=== PATIENT | female | born 1965 | race Caucasian/White ===

== ENCOUNTER 2018-03-20 19:10 | Emergency (ER) | payer MEDICARE, MEDICAID, SELFPAY ==
[2018-03-20 19:10] VITALS: BP 123/76; PULSE 70; RESP 16; TEMP 36.9; O2SAT 99; BMI 29.0
[2018-03-20] MEDS: Diphth,Pertuss(Acell),Tet Vac 0.5 ML Vial IM (20:03)
--- NOTE | 2018-03-20 20:04 | ED.VISSUMM ---
- ER Visit Summary Date of Service: 03/20/18 Chief Complaint: Foot laceration History of Present Illness: The patient is a 52 F who states that she dropped a michelle jar full of margaritas on her left foot causing laceration. Unknown last tetanus. She denies any other injuries. Physical Examination: There is a rolon over the dorsum of the left foot near the MTP joint. Normal tendon function. Vascular intact distally. No active bleeding. Emergency Department Course and Treatment: Tetanus was updated and the wound was locally anesthetized using 1% lidocaine. It was washed with Shur-Clens explored and irrigated. It was closed using a total of #4 4-0 plain interrupted Ethilon sutures. Wound care discussed with patient follow-up 10-14 days for suture removal Impression: 1. 2 cm left foot laceration with repair 2. Tetanus update This note was generated with [employer] dictation software. It may contain incorrect words, spelling, and punctuation that were not noted in review of the chart prior to signing ED Disposition - Plan for ED Patient: Disposition: Home or Assisted Living Chief Complaint: Laceration Instructions: ED Laceration Foot Referrals: Jesse Salinas DO [Primary Care Provider] - 10-14 Days suture removal
[2018-03-20 20:29] VITALS: RESP 18
== END 2018-03-20 20:30 | disposition home or self-care (01) ==
LOC: ED 20:09
PROVIDERS: Emergency Provider Emergency Medicine; Family Provider Student in an Organized Health Care Education/Training Program; PCP Student in an Organized Health Care Education/Training Program
DX: S91.312A Laceration without foreign body, left foot, initial encounter (principal); W20.8XXA Other cause of strike by thrown, projected or falling object, initial encounter; Y93.9 Activity, unspecified; Y92.9 Unspecified place or not applicable; Y99.9 Unspecified external cause status; Z23 Encounter for immunization; Z79.899 Other long term (current) drug therapy
CPT/HCPCS: 12001; 90471; 90715; 99283

== ENCOUNTER 2018-12-02 19:33 | Emergency (ER) | payer MEDICARE, MEDICAID, SELFPAY ==
[2018-12-02] VITALS (7 sets, daily range): BP systolic 109–142; BP diastolic 72–88; PULSE 64–77; RESP 14–16; TEMP 36.6; O2SAT 94–98; BMI 32.0
--- NOTE | 2018-12-02 19:47 | RAD_ITS ---
STUDY: X-RAY CHEST REASON FOR EXAM: Female, 53 years old. Chest pain TECHNIQUE: Frontal view of the chest COMPARISON: None. FINDINGS: There are calcified granulomata noted in the left lower lobe. The lungs are otherwise clear. There are no pleural effusions. There is no pneumothorax. The heart is normal in size. The visualized osseous structures are within normal limits. RAD/Chest 1 View (Portable) IMPRESSION: No acute thoracic pathology. Electronically Signed: Valentino Mason, at 20:08 EST Tel , Service support ,
--- NOTE | 2018-12-02 19:47 | EKG12_ITS ---
Test Reason : CP Blood Pressure : / mmHG Vent. Rate : 072 BPM Atrial Rate : 072 BPM P-R Int : 182 ms QRS Dur : 108 ms QT Int : 400 ms P-R-T Axes : 075 019 054 degrees QTc Int : 438 ms Sinus rhythm with occasional Premature ventricular complexes Otherwise normal ECG Confirmed by CARLOS CALIX, KAYLYNN ([id number]), photograph editor DONNA YORK ([id number]) on 12/04/2018 4:36:03 PM Referred By: CARLOS Confirmed By:KAYLYNN GONZALEZ MD
--- NOTE | 2018-12-02 19:53 | ED.DCSUM_ITS ---
- ER Visit Summary Date of Service: 12/02/18 Chief Complaint: Chest pain History of Present Illness: The patient is a 53 F who states that upon waking this morning she had a chest pressure. She states that it has been constant all day. She states it feels similar to when she had tox obvious cardiomyopathy last March. She states she had a heart catheterization at [facility]. She denies any nausea vomiting shortness of breath arm or jaw pain symptoms. She has no personal history of hypertension diabetes or hyperlipidemia. She is a non-smoker. She states her father had heart disease and at the age of 49. But she also states it may have been a stroke. Physical Examination: Afebrile vital signs are stable Gen: Well-nourished well-developed Head: Normocephalic atraumatic Eyes: Perrl EOMI ENT: TMs clear no rhinorrhea moist mucous membranes Neck: Supple no lymphadenopathy no JVD nontender CVS: Regular rate rhythm no murmurs normal S1-S2 Respiratory: No distress clear to auscultation bilaterally chest nontender Abdomen: Soft nontender nondistended normal bowel sounds no masses Back: Nontender Extremity: Nontender no edema Skin: Normal color no rash Neuro: alert orientated ?3 CN II-XII intact normal strength sensation reflexes gait cerebellar Psych: Normal affect normal mood Test Results: EKG showed a normal sinus rhythm rate of 72. CBC BMP and troponin were negative. D-dimer in the normal range Emergency Department Course and Treatment: Patient received nitroglycerin which did not fully relieve her symptoms. She received a GI cocktail. She states that after the nitro and the GI cocktail she is feeling significantly better. LILLY score of 0. Greater than 6-hour troponin is negative patient to follow-up with primary care. Impression: Chest pain This note was generated with [employer] dictation software. It may contain incorrect words, spelling, and punctuation that were not noted in review of the chart prior to signing ED Disposition - Plan for ED Patient: Disposition: Home or Assisted Living Instructions: ED Chest Pain Atypical Unkn Cause Referrals: Jesse Salinas DO [Primary Care Provider] - 1 Week
[2018-12-02 20:00] LABS: Absolute Lymphocyte Count 3.04 X10^3/ul (0.83-4.51); Absolute Neutrophil Count 1.3 X10^3/uL (2.0-7.7); Basophil# 0.03 X10^3/uL; Basophil% 0.6 % (0-1); Differential Indicated SCAN CRITERIA MET; Eosinophil# 0.09 X10^3/uL; Eosinophils% 1.9 % (0-5); Hematocrit 41.3 % (37-47); Hemoglobin 12.7 g/dl (12.0-15.0); Lymphocyte # 3.04 X10^3/ul (4.0); Lymphocyte % 65.5 % (19-41); Mean Corp Hgb Conc 30.8 g/gl (32-36); Mean Corpuscular Hgb 26.3 pg (27.0-32.0); Mean Corpuscular Volume 85.7 fL (81-99); Mean Platelet Vol. 9.9 fl (6.2-12.0); Monocyte# 0.23 X10^3/uL; Neutrophil # 1.25 X10^3/uL (2.7-7.7); POSITIVE COUNT NO; POSITIVE DIFFERENTIAL NO; POSITIVE MORPHOLOGY YES; Platelet Count 243 K/mm3 (150-450); RBC Distribution Width CV 21.6 % (11.6-14.6); RBC Distribution Width SD 68.2 fl (35.1-43.9); Red Blood Count 4.82 M/mm3 (4.2-5.4); White Blood Count 4.6 K/mm3 (4.4-11.0)
[2018-12-02 20:09] LABS: Anion Gap 7 (5-15); BUN 10 mg/dL (7-18); BUN/Creat Ratio 14.9 RATIO (10-20); Calcium,Total 8.4 mg/dL (8.5-10.1); Chloride 107 mmol/L (98-107); Creatinine, Serum 0.67 mg/dL (0.55-1.02); EST Glomerular Filtration Rate 98 mL/min (>60); Est Glom Filt Rate - Afr Amer 118 mL/min (>60); Glucose 91 mg/dL (74-106); Potassium 3.8 mmol/L (3.5-5.1); Sodium Level 144 mmol/L (136-145)
[2018-12-02 20:20] LABS: Anisocytosis 1+; Crenated RBC 1+; Differential Comment SCANNED
[2018-12-02] MEDS: Mag Hydrox/Al Hydrox/Simeth 30 ML UDC PO (20:55)
[2018-12-02 21:14] LABS: D-Dimer Quantitative (DVT/PE) 0.47 FEU/ug/m (0.27-0.49)
== END 2018-12-02 21:41 | disposition home or self-care (01) ==
PROVIDERS: Emergency Provider Emergency Medicine; Family Provider Student in an Organized Health Care Education/Training Program; PCP Student in an Organized Health Care Education/Training Program
DX: R07.9 Chest pain, unspecified (principal); I49.3 Ventricular premature depolarization; K21.9 Gastro-esophageal reflux disease without esophagitis; Z79.899 Other long term (current) drug therapy; Z98.84 Bariatric surgery status
CPT/HCPCS: 71045; 80048; 84484; 85025; 85379; 93005; 99285; A4216

== ENCOUNTER 2019-01-24 15:23 | Emergency (ER) | payer MEDICARE, MEDICAID, SELFPAY ==
[2018-12-02 19:33] VITALS: BMI 32.0
[2019-01-24 15:24] VITALS: BP 121/70; PULSE 95; RESP 16; TEMP 37.3; O2SAT 96; BMI 29.5
--- NOTE | 2019-01-24 15:46 | CT_ITS ---
We are attempting to reach Jimbo Whitt MD to discuss findings. An addendum with communication details will be sent when the communication is complete. STUDY: CT ABDOMEN AND PELVIS WITHOUT CONTRAST REASON FOR EXAM: Female, 53 years old. Right lower quadrant pain. History of cholecystectomy. History of deep ulcers. RADIATION DOSAGE (If Supplied By Facility): CTDIvol = ( 14.67 ) mGy, DLP = ( 1020.80 ) mGycm TECHNIQUE: Transaxial images were obtained from the dome of the diaphragm to the symphysis pubis without oral contrast, and without intravenous contrast. Sagittal and coronal images were reconstructed. Individualized dose optimization techniques were used for this CT. COMPARISON: None. FINDINGS: There is increased AP diameter of the chest. There is a 6 mm, as well as a 1.4 cm calcified anatomic in the lingula. The lungs otherwise clear. The visualized portions of the heart are within normal limits. There is scattered calcified granulomata within the liver which is otherwise uniform in density. There are surgical clips in the gallbladder fossa consistent with a prior cholecystectomy. There is mild splenomegaly. Calcified granulomata are seen within the spleen. Normal pancreas. Normal bilateral adrenal glands. There is a 5 mm cyst in the lower pole of an otherwise normal right kidney. Normal left kidney. There is evidence of gastric bypass surgery. Loops of mildly distended small bowel loop in the left upper quadrant. The remainder of the small bowel appears nondistended.. And feces is seen throughout the redundant colon without mass or obstruction. There are intraluminal collections of ascites within the mid to lower abdomen. There is a fluid collection along the right anterior abdomen adjacent to the cecum measuring 12.4 x 5.5 x 2.2 cm in size. Normal abdominal aorta. There is an IVC filter in place. Normal retroperitoneum. The urinary bladder is poorly distended. Status post hysterectomy. There is no free air within the peritoneal cavity. Normal abdominal wall. There are diffuse degenerative changes of the visualized lumbar spine. There is a right total hip arthroplasty. CT/Abdomen/Pelvis W IV Cont ONLY IMPRESSION: 1. Nonvisualization of the pancreas. There is a contained fluid collection in the right lower quadrant. The possibility of appendiceal abscess cannot be ruled out. 2. Minimal free fluid in the interloop collections in the left lower quadrant. 3. Hepatosplenomegaly without mass. 4. Old granulomatous disease. 5. Evidence of gastric bypass surgery hysterectomy and cholecystectomy. 6. Right renal cyst. 7. Right hip replacement. Electronically Signed: Everett Luther DO at 17:29 EDT Tel [phone], Service support ,
--- NOTE | 2019-01-24 15:49 | ED.DCSUM_ITS ---
- ER Visit Summary Date of Service: 01/24/19 Chief Complaint: Abdominal pain History of Present Illness: The patient is a 53 F with right lower quadrant pain. Pain started about 2 weeks ago. It has continually gotten worse since the patient cannot bear it anymore. The pain is in her right lower quadrant and radiates to her right groin. Worse when laying on her side and when moving. Associated with nausea but denies any other GI symptoms. Denies any or INFECTION CONTROL PRACTITIONER symptoms. Denies fevers. She does have a history of multiple surgeries for hernia as well as appendectomy and cholecystectomy. Patient is concerned for hernia. Physical Examination: Afebrile and vital signs unremarkable. Patient appears uncomfortable but not toxic or in distress. Heart regular rate and rhythm. Lungs clear. Abdomen tender in the right lower quadrant. No guarding or rebound. Skin appears normal without pallor or jaundice. Test Results: Labs, urine, CT abdomen and pelvis pending. Emergency Department Course and Treatment: Patient treated with fluids, morphine, and Zofran while awaiting results. Lab work and urinalysis all unremarkable. Radiology did contact me. She does have some free fluid in her right lower quadrant. The radiologist was concerned for appendiceal abscess. Other incidental findings as noted in a separate radiology report. Nothing else to explain her symptoms. Patient says she had an appendectomy in the early s. No issues with abscess previously. She said her last operation was done by Dr. John. She has seen Dr. Belle in [place] for endoscopy. She is requesting to see a surgeon here. I did contact Dr. Meredith who will evaluate the patient. Given the patient's complicated history, Dr. Meredith advised transfer to [facility]. Patient was accepted by Dr. Marlow. Treatment Plan: As above Disposition: Transfer Impression: 1. Right lower quadrant abscess This note was generated with [employer] dictation software. It may contain incorrect words, spelling, and punctuation that were not noted in review of the chart prior to signing ED Disposition - Plan for ED Patient: Referrals: Jesse Salinas DO [Primary Care Provider] -
[2019-01-24 16:21] LABS: Bacteria 0 SEEN /hpf (None Seen); Red Blood Cells-Urine 0 SEEN /hpf (0-5)
[2019-01-24] MEDS: 0.9% Normal Saline 1,000 ML 1000 ML IV (16:21)
[2019-01-24] MEDS: Ondansetron 4 MG/2 ML Vial IV (16:21)
[2019-01-24] MEDS: Morphine 4 MG/ML Syringe IV ×2 (16:21→18:55)
[2019-01-24 16:27] LABS: Absolute Lymphocyte Count 1.71 X10^3/ul (0.83-4.51); Basophil# 0.02 X10^3/uL; Basophil% 0.5 % (0-1); Eosinophil# 0.07 X10^3/uL; Eosinophils% 1.6 % (0-5); Hematocrit 37.8 % (37-47); Hemoglobin 12.2 g/dl (12.0-15.0); Lymphocyte # 1.71 X10^3/ul (4.0); Lymphocyte % 38.6 % (19-41); Mean Corp Hgb Conc 32.3 g/gl (32-36); Mean Corpuscular Hgb 28.8 pg (27.0-32.0); Mean Corpuscular Volume 89.4 fL (81-99); Monocyte# 0.59 X10^3/uL; Monocyte% 13.3 % (0-10); Neutrophil # 2.04 X10^3/uL (2.7-7.7); Platelet Count 256 K/mm3 (150-450); RBC Distribution Width CV 14.8 % (11.6-14.6); RBC Distribution Width SD 48.9 fl (35.1-43.9); Red Blood Count 4.23 M/mm3 (4.2-5.4); White Blood Count 4.4 K/mm3 (4.4-11.0)
[2019-01-24 16:28] LABS: POSITIVE COUNT NO; POSITIVE DIFFERENTIAL NO; POSITIVE MORPHOLOGY NO
[2019-01-24 16:34] LABS: Color, Urine Amber (Yellow); Glucose, Dipstick Normal (Normal); Ketone-Dipstick 5 mg/dl (Negative); Leukocyte Esterase-Dipstick 500 /ul (Negative); Nitrite-Dipstick Negative (Negative); Occult Blood-Urine Negative /ul (Negative); Protein-Dipstick 30 mg/dl (Negative); Urine Bilirubin Dipstick 1 mg/dL (Negative); Urine Clarity Clear (Clear); Urine Urobilinogen 4 mg/dl (Normal)
[2019-01-24 16:45] LABS: ALB/GLOB Ratio 0.8 RATIO (0.9-2.4); AST(SGOT) 17 U/L (15-37); Alanine Aminotransfer ALT/SGPT 18 U/L (13-56); Albumin, Serum 2.8 g/dL (3.2-5.0); Alkaline Phosphatase 98 U/L (45-117); Anion Gap 3 (5-15); BUN 11 mg/dL (7-18); BUN/Creat Ratio 18.9 RATIO (10-20); Calcium,Total 8.9 mg/dL (8.5-10.1); Chloride 104 mmol/L (98-107); Creatinine, Serum 0.58 mg/dL (0.55-1.02); EST Glomerular Filtration Rate 115 mL/min (>60); Est Glom Filt Rate - Afr Amer 139 mL/min (>60); Estimated Creatinine Clearance 105.01 ml/min; Globulin 3.5 g/dL (2.2-4.2); Glucose 97 mg/dL (74-106); Lipase 59 U/L (73-393); Protein, Total 6.3 g/dL (6.4-8.2); Sodium Level 140 mmol/L (136-145)
[2019-01-24 16:55] LABS: Mucous, Urine 2+ /hpf (<or=2+); Squamous Epithelial Cells - UA 0-5 SEEN /hpf (5-10)
[2019-01-24 16:56] LABS: White Blood Cells 0-5 SEEN /hpf (0-5)
[2019-01-24 16:57] LABS: Transitional Epithelial - Ur 0-5 SEEN /hpf (0-5)
--- NOTE | 2019-01-24 18:13 | PCM.CONS.B ---
- Consult Date of Consult: 01/24/19 - Reason for Consult Chief Complaint: abdominal pain History of Present Illness: 53 y/o WF presents with complaint of right lower quadrant abdominal pain. Has noted this for two weeks. Has been worsening over time. Patient is concerned that this is due to recurrence of hernia - states that in the right lower quadrant area - she feels a popping of tissue in and out. Denies constipation or diarrhea. Denies emesis, but has nausea. Denies fevers. States that she has had multiple abdominal surgeries - with hernia repairs x 7 some with mesh, gastric bypass, cholecystectomy, hysterectomy. She states that she thinks that she had her appendix removed with her hysterectomy surgery. CT scan - fluid collection along right anterior abdomen adjacent to the cecum measuring 12.4 x 5.5 x 2.2 cm, IVC filter in place, minimal interloop fluid of small intestine WBC is 4.4K, with no left shift of differential PAST?MEDICAL?HISTORY ? Anemia ? ? Anxiety ? ? Bipolar disorder (HCC) ? ? Cervical cancer (HCC) ? ? DDD (degenerative disc disease) ? ? lumbar ? Depression ? ? DVT (deep venous thrombosis) (HCC) 2003, 2006 ? GERD (gastroesophageal reflux disease) ? ? GI bleed 2003, 2009 ? gastric, following bypass ? Incisional infection ? ? Rt hip, completes Bactrim 11/07/2012 ? Kyphosis ? ? Leukopenia ? ? benign per Technical Publications Manager ? Lumbago ? ? Muscle spasms of lower extremity ? ? lumbar area ? OA (osteoarthritis) ? ? Osteopenia ? ? Radiculitis, lumbosacral ? ? Recurrent incisional hernia 01/24/2017 ? Scoliosis ? ? Seroma ? ? RT hip incision ? Staph infection ? ? rt hip with wound vac, 09/2012- 2012 ? Status post hip surgery ? ? x 4 after accident ? PAST?SURGICAL?HISTORY ? DELIVERY ONLY ? 1985, ? GASTRIC BYPASS ? 2003 ? HYUN FILTER ? 2004 ? Lt leg ? HERNIA REPAIR HX ? ? ? 7 incisional 1 inguinal ? LAPAROSCOPIC CHOLEYCYSTECTOMY ? 1994 ? OOPHORECTOMY, PART/TOTAL UNILAT/BILAT ? ? ? b/l due to endometriosis ? PAST SURGICAL HISTORY OF ? 0155-3177 ? 4 replacements and 5 revisions on right hip ? PAST SURGICAL HISTORY OF ? 2003 ? enteroarterial fistula with massive GI bleed, s/p laparotomy ? PICC LINE INSERT/CONSULT ? 03/28/2013 ? S $ HIP REVISION ? 2011 ? RT.x 4 surgeries ? TOTAL ABDOM HYSTERECTOMY ? 1988 ? MEDICATIONS: Phentermine HCl (ADIPEX-P) 37.5 mg tablet Take 1 tablet by mouth once daily for 30 days. BMI 30 traMADol (ULTRAM) 50 mg tablet Take 1-2 tablets by mouth every 8 hours as needed for Pain for up to 30 days. Ok to fill on 12/10/18, ok for 120 tablets for 30 day supply [START ON 01/09/2019] traMADol (ULTRAM) 50 mg tablet Take 1-2 tablets by mouth every 8 hours as needed for Pain for up to 30 days. Ok to fill on 01/09/19Ok to have 120 tablets for 30 day supply amoxicillin-clavulanic acid (AUGMENTIN) 875-125 mg per tablet Take 1 tablet by mouth twice daily for 10 days. [START ON 02/08/2019] traMADol (ULTRAM) 50 mg tablet Take 1-2 tablets by mouth every 8 hours as needed for Pain for up to 30 days. Ok to fill on 02/08/19, ok for 120 tablets for 30 day supply [START ON 01/03/2019] fentaNYL (DURAGESIC) 25 mcg/hr Apply 1 Patch as directed every 72 hours for 30 days.Earliest Fill Date: 01/03/19 amitriptyline (ELAVIL) 50 mg tablet Take 1 tablet by mouth daily at bedtime. Omeprazole 40 mg capsule Take 1 capsule by mouth once daily. promethazine (PHENERGAN) 25 mg tablet Take 1 tablet by mouth every 6 hours as needed. TENS unit and electrodes cmpk 1 Units four times daily as needed. Include supplies, refills x 1 year furosemide (LASIX) 40 mg tablet TAKE 1 TABLET BY MOUTH DAILY DULoxetine (CYMBALTA) 30 mg capsule Take 30 mg by mouth once daily. cyclobenzaprine (FLEXERIL) 10 mg tablet Take 1 tablet by mouth twice daily as needed for Muscle Spasm. pyridoxine, vitamin B6, (VITAMIN B6) 100 mg tablet Take 1 tablet by mouth once daily. Zinc 50 mg tab Take 50 mg by mouth once daily. cyanocobalamin (VITAMIN B-12) 1,000 mcg tab Take 1 tablet by mouth once daily. ALLERGIES: NKDA Review of systems: General: Denies fevers, but has been feeling hot. GI: see HPI, Denies emesis, but has had nausea. Denies constipation or diarrhea. MS: Has chronic joint pain Heme: Has IVC filter in place Neuro: denies seizures Psych: has chronic pain Physical examination: Vital signs Temp 99.1F HR 95 BP 121/70 RR 16 General WD/WN WF in apparent discomfort, alert and oriented, not septic appearing HEENT Normocephalic. EOM intact with sclera clear and no icterus noted. Neck is supple with no jugular venous distention noted. Trachea is midline. Lungs normal breath sounds, no labored breathing noted, such as retractions. No cough heard. Heart regular Abdomen soft with diffuse tenderness and patient moaning significantly with examination of the abdomen, no guarding noted Extremities bilateral dependent swelling of lower extremities, no pitting edema noted. Genitourinary/Rectal deferred Skin normal skin integrity. Neurological non focal Psychological anxious, but appropriate Impression: abdominal pain Discussion/Plan: I have discussed the above with the patient. Patient has a complicated surgical history, especially of the following enteroarterial fistula with massive GI bleed, s/p laparotomy for which no medical records are available and patient does not recall except that she states herself that she has had multiple surgeries that have gone wrong. CT scan findings are difficult to interpret and physical examination of the patient is also difficult to interpret as she require chronic pain medications - she is moaning and groaning in pain, writhing on the examination bed, etc. She may require abdominal surgery, though this is not determinable at this point, would recommend tertiary medical facility for abdominal surgery. She agrees to transfer to [facility] as she states that her last surgery was done there. I have answered all questions to the patient?s satisfaction and the patient has no further questions.
[2019-01-24 18:57] VITALS: BP 108/63; PULSE 68; RESP 14
[2019-01-24 20:34] VITALS: BP 108/63; PULSE 68; RESP 14; O2SAT 97
--- NOTE | 2019-01-24 21:25 | ED.RN ---
REPORT GIVEN TO FLORY
== END 2019-01-24 20:30 | disposition short-term general hospital (02) ==
PROVIDERS: Emergency Provider Emergency Medicine; Family Provider Student in an Organized Health Care Education/Training Program; PCP Student in an Organized Health Care Education/Training Program
DX: L02.211 Cutaneous abscess of abdominal wall (principal)
CPT/HCPCS: 74177; 80053; 81001; 83690; 85025; 96361; 96374; 96375; 96376; 99284; J7030; Q9967; A4216; J2405

== ENCOUNTER 2019-02-02 08:09 | Emergency (ER) | payer MEDICARE, MEDICAID, SELFPAY ==
--- NOTE | 2019-02-02 | CT_ITS ---
STUDY: CT ABDOMEN AND PELVIS WITH CONTRAST REASON FOR EXAM: Female, 53 years old. Right-sided abdominal pain. Drainage catheter in place. RADIATION DOSAGE (If Supplied By Facility): CTDIvol = ( 14.80 ) mGy, DLP = ( 1170.07 ) mGycm TECHNIQUE: Transaxial images were obtained from the dome of the diaphragm to the symphysis pubis with oral contrast. 100 IV/Oral Isovue 300 was administered. Sagittal and coronal images were reconstructed. Individualized dose optimization techniques were used for this CT. COMPARISON: 01/24/2019 FINDINGS: Calcified granulomas in the left lung base. The visualized portions of the heart are within normal limits. Normal liver. There are surgical clips in the gallbladder fossa consistent with a prior cholecystectomy. There are multiple benign calcified granulomata of the spleen. Normal pancreas. Normal bilateral adrenal glands. Normal right kidney. Normal left kidney. Postsurgical changes of the stomach. Small bowel essentially within normal limits. Again noted is a multiloculated abscess containing air and fluid in the right lower quadrant region. A pigtail drainage catheter is in place without significant fluid surrounding this pigtail drainage catheter. Additional abscess collection superior to the drainage catheter measuring 6.6 x 4.2 cm and another pocket of fluid measuring 3.8 cm. Unsure if these are contiguous. Another smaller pocket below the pigtail drainage catheter measuring 5.1 x 2.5 cm. Overall, decrease in size as compared to prior. Nonvisualized appendix Normal abdominal aorta. There is an IVC filter in place. Mesenteric inflammation and edema in the right lower quadrant region Normal urinary bladder. Normal abdominal wall. There are diffuse degenerative changes of the visualized lumbar spine. Right hip arthroplasty CT/Abdomen/Pelvis WITH Contrast IMPRESSION: Decrease in size and multiloculated abscess collection in the right lower quadrant region as detailed above. Pigtail drainage catheter has no significant fluid around it. Likely that the other pockets of fluid are noncontiguous. Remainder is unchanged as compared to January 24, 2019 Electronically Signed: Dieudonne Davies DO at 10:51 EDT Tel , Service support ,
[2019-02-02 08:11] VITALS: BP 128/74; PULSE 87; RESP 16; TEMP 37.2; O2SAT 99; BMI 29.8
[2019-02-02] MEDS: 0.9% Normal Saline 1,000 ML 150 ML IV (08:44)
[2019-02-02] MEDS: Morphine 4 MG/ML Syringe IV (08:44)
[2019-02-02] MEDS: Ondansetron 4 MG/2 ML Vial IV (08:45)
[2019-02-02 08:55] LABS: Absolute Lymphocyte Count 1.22 X10^3/ul (0.83-4.51); Absolute Neutrophil Count 3.5 X10^3/uL (2.0-7.7); Basophil# 0.01 X10^3/uL; Basophil% 0.2 % (0-1); Eosinophil# 0.04 X10^3/uL; Eosinophils% 0.7 % (0-5); Hematocrit 40.5 % (37-47); Hemoglobin 13.1 g/dl (12.0-15.0); Lymphocyte # 1.22 X10^3/ul (4.0); Lymphocyte % 22.4 % (19-41); Mean Corp Hgb Conc 32.3 g/gl (32-36); Mean Corpuscular Hgb 29.2 pg (27.0-32.0); Mean Corpuscular Volume 90.4 fL (81-99); Mean Platelet Vol. 9.5 fl (6.2-12.0); Monocyte# 0.68 X10^3/uL; Monocyte% 12.5 % (0-10); Neutrophil # 3.48 X10^3/uL (2.7-7.7); Platelet Count 279 K/mm3 (150-450); RBC Distribution Width SD 44.9 fl (35.1-43.9); Red Blood Count 4.48 M/mm3 (4.2-5.4); White Blood Count 5.4 K/mm3 (4.4-11.0)
[2019-02-02 08:57] LABS: POSITIVE COUNT NO; POSITIVE DIFFERENTIAL NO; POSITIVE MORPHOLOGY NO
[2019-02-02 09:01] LABS: AST(SGOT) 22 U/L (15-37); Alanine Aminotransfer ALT/SGPT 37 U/L (13-56); Albumin, Serum 2.8 g/dL (3.2-5.0); Alkaline Phosphatase 186 U/L (45-117); Anion Gap 4 (5-15); BUN 7 mg/dL (7-18); Bilirubin, Direct 0.35 mg/dL (0.00-0.30); Calcium,Total 8.2 mg/dL (8.5-10.1); Chloride 105 mmol/L (98-107); Creatinine, Serum 0.54 mg/dL (0.55-1.02); EST Glomerular Filtration Rate 125 mL/min (>60); Est Glom Filt Rate - Afr Amer 152 mL/min (>60); Estimated Creatinine Clearance 112.79 ml/min; Globulin 3.2 g/dL (2.2-4.2); Glucose 89 mg/dL (74-106); Potassium 3.6 mmol/L (3.5-5.1); Sodium Level 140 mmol/L (136-145)
[2019-02-02 09:47] LABS: Bacteria 0 SEEN /hpf (None Seen); Mucous, Urine 0 SEEN /hpf (<or=2+); Red Blood Cells-Urine 0 SEEN /hpf (0-5)
[2019-02-02 09:49] LABS: Color, Urine Yellow (Yellow); Glucose, Dipstick Normal (Normal); Ketone-Dipstick Negative (Negative); Leukocyte Esterase-Dipstick 25 /ul (Negative); Nitrite-Dipstick Negative (Negative); Occult Blood-Urine Negative /ul (Negative); Protein-Dipstick Negative (Negative); Urine Bilirubin Dipstick Negative (Negative); Urine Clarity Sl. Cloudy (Clear); Urine Urobilinogen 4 mg/dl (Normal)
[2019-02-02 09:50] LABS: Squamous Epithelial Cells - UA 0-5 SEEN /hpf (5-10); White Blood Cells 0-5 SEEN /hpf (0-5)
[2019-02-02 12:08] VITALS: BP 95/52; PULSE 88; RESP 12; O2SAT 100
--- NOTE | 2019-02-02 12:24 | ED.VISSUMM ---
- ER Visit Summary Date of Service: 02/02/19 Chief Complaint: Abdominal pain History of Present Illness: The patient is a 53 F who was seen on January 24 for abdominal pain. There is a fluid collection noted on CT in the right lower quadrant. Patient was transferred to [facility] where JULIA drain was placed under CT guidance. Patient denies receiving any antibiotics. She presents back today with worsening pain over the past 2 days. She reports little output from her JULIA. She is scheduled to see her surgeon in 2 days. Physical Examination: Vital signs unremarkable. Patient lying in bed no acute distress. She is nontoxic appearing. Head and neck examination unremarkable. Heart is regular rate and rhythm. Lung sounds are clear. Abdomen is soft with mild diffuse tenderness. JULIA drain is present in the right lower quadrant. Hypoactive bowel sounds are noted throughout. There is no guarding or rebound. Test Results: CBC and chemistry studies normal. LFTs significant only for an alk phos of 186. Urinalysis normal. CT abdomen pelvis with contrast shows decrease in size and multiloculated abscess collection of the right lower quadrant. A pigtail catheter is in place and has no significant fluid collection around it. Emergency Department Course and Treatment: Patient was given morphine and Zofran for pain while here. I spoke with Dr. Anne who was able to review the patient's current CT, CT scan from January 24, and the notes from [facility]. The fluid drained with the pigtail catheter showed no organisms on culture. He agrees the fluid collection does look like it is improving. Patient is to follow-up with her surgeon on Monday as scheduled. She will be written for Percocet for pain over the weekend that she will take in place of tramadol. Treatment Plan: [] Disposition: Discharge Impression: Right lower quadrant fluid collection, improving This note was generated with [employer] dictation software. It may contain incorrect words, spelling, and punctuation that were not noted in review of the chart prior to signing ED Disposition - Plan for ED Patient: Disposition: Home or Assisted Living Prescriptions: Oxycodone HCl/Acetaminophen [Percocet 5/325] 1 tablet PO Q6H PRN PRN 3 Days #12 tablet PRN Reason: Pain Additional Instructions: Your labwork today is unremarkable. The fluid collection in your abdomen is improving. You can take Percocet for pain in place of Tramadol. FOllow-up with your surgeon on Monday as scheduled.
[2019-02-02 12:33] VITALS: BP 100/60; PULSE 87; RESP 18; O2SAT 99
[2019-02-02] MEDS: oxyCODONE 5 MG Tablet PO (12:35)
== END 2019-02-02 12:36 | disposition home or self-care (01) ==
PROVIDERS: Emergency Provider Emergency Medicine; Family Provider Student in an Organized Health Care Education/Training Program; PCP Student in an Organized Health Care Education/Training Program
DX: R18.8 Other ascites (principal); F31.9 Bipolar disorder, unspecified; Z79.899 Other long term (current) drug therapy
CPT/HCPCS: 74177; 80048; 80076; 81001; 85025; 96361; 96374; 96375; 99285; J7030; Q9967; J2405

== ENCOUNTER → 2019-09-26 13:59 | Outpatient (CLI) | payer MEDICARE, MEDICAID, SELFPAY | PROVIDERS: Family Provider Student in an Organized Health Care Education/Training Program; PCP Student in an Organized Health Care Education/Training Program; Referring Provider Obstetrics & Gynecology; Visit Provider Obstetrics & Gynecology | DX: Z12.4 Encounter for screening for malignant neoplasm of cervix (principal) | CPT/HCPCS: 88175; G0145 ==

== ENCOUNTER → 2020-03-26 13:25 | Outpatient (CLI) | payer MEDICARE, MEDICAID, SELFPAY | PROVIDERS: PCP Student in an Organized Health Care Education/Training Program | DX: Z20.828 Contact with and (suspected) exposure to other viral communicable diseases (principal) | CPT/HCPCS: 87635; G2023; U0003 ==

== ENCOUNTER 2021-05-10 10:30 | Outpatient (RCR) | payer MEDICARE, MEDICAID, SELFPAY ==
--- NOTE | 2021-03-22 14:57 | HP.PTEVAL ---
Patient's Visit Information MIHAELA KULKARNI is a 55 year old F referred to Physical Therapy by Dr. Tre Porter MD with a diagnosis of closed fracture of right tibia and fib. Date of Evaluation: 03/22/21 Physical Therapist: QUINN Aguilar - Visit Plan Frequency: 3x /Week Duration: 2 Months Plan: 3X/ week for 6-8 weeks for R LE ROM, STRENGTH, stair negotiation, curb steps, balance, GAIT training, transfer training, with HEP. HEP: bridges, clam shells, standing hip abd, sit to stand with knees farther apart - Subjective Pt fell and Broke her R Tib/Fib. She fell in Nov and was in the hospital for a month and rehab and then was at [facility] for 2 months because she could not go home due to steps. She had home PT at his house and then she was done with home PT. She has a marycarmen placed that pushes her knee over to the side. Once it heals she will have the marycarmen taken out and will need a R TKR. They are talking about doing that in about 6 months. She was not on the walker before surgery but was a cane user once in awhile due to a previous R THR (last one was in 2012 and she has had about 6 of them). She is back home. She is going up the stairs better and she has a railing and carries her folded walker with her and uses it kind of like a cane. She goes up the steps with the L leg and then brings her R leg up with 1 railing and a folded walker. She has no restrictions at this point. She struggles with walking for long distances and keeping strength in the leg and keeping the swelling down. HEP currently none. She has to use her arms to get out of a chair. - Pain R knee pain Pain Intensity (Out of 10): 3 - Objective Gait; walked in with front wheeled walker with short stride, increase valgus at the R knee, increase pronation of the R ankle, decrease stance time on the R LE, decrease hip ext on the R with increase pressure through B UE's. LE MMT: B hip flex 3-/4, B knee ext 4-/5, B knee flex 4/5, R hip abd 2+/5, L hip abd 3+/5, able to do 1/2 normal ROM bridge,. Sit to stand: pt is able to sit to stand but needs B UE;s to get out of the chair. Stairs: up the steps with 2 hand rails with L leg ascending pulling up the steps with her arms and then putting the R leg on the step to ascend. To descend the steps she leads with her R followed by her L using B hand rails. - Goals Goal 1:: I HEP Goal Time Frame: 8-12 Weeks Goal 2:: Get up out of a chair with 1 UE support X 10 without substitution Goal Time Frame: 8-12 Weeks Goal 3:: Go up and down the stairs with 1 handrail for safety going recip with ease Goal Time Frame: 8-12 Weeks Goal 4:: Walk with a cane with a normal stride with very little limping on the R LE Goal Time Frame: 8-12 Weeks Goal 5:: INCREASE LE STRENGTH ON THE L LE (LE MMT: B hip flex 3-/4, B knee ext 4-/5, B knee flex 4/5, R hip abd 2+/5, L hip abd 3+/5, able to do 1/2 normal ROM bridge). Goal Time Frame: 8-12 Weeks - Rehabilitation Potential Rehabilitation Potential: Good - Anticipated Interventions Patient/Client Instruction: Educate patient on: Condition, Plan of Care For the Purpose of:: To decrease pain, To decrease swelling/inflammation, To increase ROM, To improve nutrient delivery to tissue, To improve muscle performance and motor function, To improve ability to perform ADL's, To increase tolerance to activity/condition/position, To improve performance and independence with ADL's, To decrease level of supervision to perform tasks, To improve ability of physical actions for home/community/work/leisure, To improve gait and locomotor functions, To improve health of tissue, To decrease soft tissue restriction, To increase flexibility/ROM, To improve balance, To assume or resume ADL's Therapeutic Exercise to Include: Strength training, Flexibilty training, Gait and locomotor training, Neuromotor development, Passive ROM, Active ROM For the Purpose of:: To decrease pain, To decrease swelling/inflammation, To increase ROM, To improve nutrient delivery to tissue, To improve muscle performance and motor function, To improve ability to perform ADL's, To increase tolerance to activity/condition/position, To improve performance and independence with ADL's, To decrease level of supervision to perform tasks, To improve ability of physical actions for home/community/work/leisure, To improve gait and locomotor functions, To improve health of tissue, To decrease soft tissue restriction, To increase flexibility/ROM, To improve balance, To improve safety with gait Functional Training to Include: ADL Training, Gait training For the Purpose of:: To decrease pain, To decrease swelling/inflammation, To increase ROM, To improve nutrient delivery to tissue, To increase oxygenation perfusion, To improve muscle performance and motor function, To improve ability to perform ADL's, To increase tolerance to activity/condition/position, To improve performance and independence with ADL's, To decrease level of supervision to perform tasks, To improve gait and locomotor functions, To improve health of tissue, To decrease soft tissue restriction, To increase flexibility/ROM, To improve balance Thank you for the opportunity to evaluate your patient. For Medicare and Medicare HMO plans, please review the plan of care and approve it. It will need to be FAXED BACK to us at [phone] for Medicare purposes. For Medicare only, by signing this I certify the plan of care. Please let me know if there are questions or concerns regarding this plan of care. Physician Signature: Date:
--- NOTE | 2021-05-10 11:04 | HP.PTREVAL ---
Dr. Tre Porter MD, It has been my pleasure to treat MIHAELA KULKARNI over the last 9 visits for closed fracture of right tibia and fib. Please see the progress note below for an update on the physical therapy plan of care! Subjective: Pt fell in the shower yesterday and hurt her R knee. It hurts to walk on it and in just sitting. She has an appointment with her surgeon this afternoon. She wants more PT. There is a possible surgery on her L side soon but she reports that she can not walk around until Nov or December and wants surgery before then. She walks around the house with a cane but def not outside the house. She has 6 steps up to her appt with 1 hand rail and does them slowly with 2 feet to a step. Objective/Function: LE MMT: B hip flex 4-/4, B knee ext 4-/5, B knee flex 4/5, R hip abd 3-/5, L hip abd 3+/5, able to do 3/4 normal ROM bridge). Stairs: Up with the L and down with the R using 2 hand rails. Sit to stand: needs B UE to get up and could onlu do 3 attempts today due to increase R knee pain. Gait: walks with a rolling walker with increase antalgic gait and increase pressure through her walker today Plan Plan: Pt to see Dr malhotra.... see what surgeon says and additional visits recommended if surgery is postponed. Pt to call in with update from Balance/Gait/Functional tests - Balance/Special Test Scores Lower Extremity Functional Score: 33 Goals Goal 1:: I HEP Goal Time Frame: 8-12 Weeks Goal Progress: Goal Met Goal 2:: Get up out of a chair with 1 UE support X 10 without substitution Goal Time Frame: 8-12 Weeks Goal 3:: Go up and down the stairs with 1 handrail for safety going recip with ease Goal Time Frame: 8-12 Weeks Goal 4:: Walk with a cane with a normal stride with very little limping on the R LE Goal Time Frame: 8-12 Weeks Goal 5:: INCREASE LE STRENGTH ON THE L LE (LE MMT: B hip flex 3-/4, B knee ext 4-/5, B knee flex 4/5, R hip abd 2+/5, L hip abd 3+/5, able to do 1/2 normal ROM bridge). Goal Time Frame: 8-12 Weeks Anticipated Interventions Patient/Client Instruction: Educate patient on: Condition, Plan of Care For the Purpose of:: To decrease pain, To decrease swelling/inflammation, To increase ROM, To improve nutrient delivery to tissue, To improve muscle performance and motor function, To improve ability to perform ADL's, To increase tolerance to activity/condition/position, To improve performance and independence with ADL's, To decrease level of supervision to perform tasks, To improve ability of physical actions for home/community/work/leisure, To improve gait and locomotor functions, To improve health of tissue, To decrease soft tissue restriction, To increase flexibility/ROM, To improve balance, To assume or resume ADL's Therapeutic Exercise to Include: Strength training, Flexibilty training, Gait and locomotor training, Neuromotor development, Passive ROM, Active ROM For the Purpose of:: To decrease pain, To decrease swelling/inflammation, To increase ROM, To improve nutrient delivery to tissue, To improve muscle performance and motor function, To improve ability to perform ADL's, To increase tolerance to activity/condition/position, To improve performance and independence with ADL's, To decrease level of supervision to perform tasks, To improve ability of physical actions for home/community/work/leisure, To improve gait and locomotor functions, To improve health of tissue, To decrease soft tissue restriction, To increase flexibility/ROM, To improve balance, To improve safety with gait Functional Training to Include: ADL Training, Gait training For the Purpose of:: To decrease pain, To decrease swelling/inflammation, To increase ROM, To improve nutrient delivery to tissue, To increase oxygenation perfusion, To improve muscle performance and motor function, To improve ability to perform ADL's, To increase tolerance to activity/condition/position, To improve performance and independence with ADL's, To decrease level of supervision to perform tasks, To improve gait and locomotor functions, To improve health of tissue, To decrease soft tissue restriction, To increase flexibility/ROM, To improve balance Please do not hesitate to contact me at [phone] by phone or if you have questions or concerns regarding this new plan of care! Sincerely, Nahomy Conte, MPT
--- NOTE | 2021-05-11 11:27 | HP.PTDCSUM ---
It has been my pleasure to treat MIHAELA KULKARNI referred by Dr. Tre Porter MD, with the diagnosis of closed fracture of right tibia and fib for a total of 9 visit(s). Discharge Date: 05/11/21 Please see the following information for a summary of their discharge status. Subjective: Pt fell in the shower yesterday and hurt her R knee. It hurts to walk on it and in just sitting. She has an appointment with her surgeon this afternoon. She wants more PT. There is a possible surgery on her L side soon but she reports that she can not walk around until Nov or December and wants surgery before then. She walks around the house with a cane but def not outside the house. She has 6 steps up to her appt with 1 hand rail and does them slowly with 2 feet to a step. R knee pain Pain Intensity (Out of 10): 8 NARENDRA CALVES Pain Intensity (Out of 10): 7 % Improvement: 50 Objective/Function: LE MMT: B hip flex 4-/4, B knee ext 4-/5, B knee flex 4/5, R hip abd 3-/5, L hip abd 3+/5, able to do 3/4 normal ROM bridge). Stairs: Up with the L and down with the R using 2 hand rails. Sit to stand: needs B UE to get up and could onlu do 3 attempts today due to increase R knee pain. Gait: walks with a rolling walker with increase antalgic gait and increase pressure through her walker today Goal 1:: I HEP Goal Progress: Goal Met Goal 2:: Get up out of a chair with 1 UE support X 10 without substitution Goal 3:: Go up and down the stairs with 1 handrail for safety going recip with ease Goal 4:: Walk with a cane with a normal stride with very little limping on the R LE Goal 5:: INCREASE LE STRENGTH ON THE L LE (LE MMT: B hip flex 3-/4, B knee ext 4-/5, B knee flex 4/5, R hip abd 2+/5, L hip abd 3+/5, able to do 1/2 normal ROM bridge). Plan: Pt to see Dr today.... see what surgeon says and additional visits recommended if surgery is postponed. Pt to call in with update from . Pt called in after Dr gaxiola and stated that the Dr wants her to wait on PT right now until closer to surgery. Discharge Comments: DC PT at this time until pt gets closer to surgery per MD If there are questions or concerns regarding this patient's physical therapy, please feel free to call me at [phone]. Thank you for the referral of this patient. Sincerely, Nahomy Conte, MPT Balance/Gait/Functional tests - Balance/Special Test Scores Lower Extremity Functional Score: 33
== END 2021-05-10 19:00 | disposition home or self-care (01) ==
LOC: PT 10:30
PROVIDERS: PCP Student in an Organized Health Care Education/Training Program; Referring Provider Orthopaedic Surgery; Visit Provider Orthopaedic Surgery
DX: S82.201D Unspecified fracture of shaft of right tibia, subsequent encounter for closed fracture with routine healing (principal); S82.401D Unspecified fracture of shaft of right fibula, subsequent encounter for closed fracture with routine healing; X58.XXXD Exposure to other specified factors, subsequent encounter
CPT/HCPCS: 97110; 97162; 97530

== ENCOUNTER 2023-03-05 13:03 | Emergency (ER) | payer MEDICARE, MEDICAID, SELFPAY ==
[2023-03-05 13:11] VITALS: BP 103/62; PULSE 90; RESP 18; TEMP 37.4; O2SAT 96; BMI 31.6
--- NOTE | 2023-03-05 13:29 | EX.ED.DYSGE1 ---
HPI History of Present Illness Chief Complaint: Wound Check Detail of Chief Complaint: Postop bleeding Informant: patient Onset/Context/Timing Onset: Days Context: Sudden Onset Timing: Intermittent and Waxes and wanes Quality: Patient status post hip arthroplasty by orthopedic surgeon who practices at Current Severity: Mild Maximum Severity: Moderate Worsened by: Nothing Relieved by: Nothing Associated Symptoms Associated Symptoms: No constitutional symptoms Narrative Narrative: Patient is a 57-year-old woman who is not on any antithrombotic or anticoagulant presents with postop bleeding. She had surgery but by orthopedic surgeon for total hip arthroplasty February 07. This was performed at [facility]. She has contacted her surgeon. He informed her there is no concern. Patient is concerned because of bleeding. She denies fever, chills night sweats. She denies redness or pain along the incision site. Prior similar symptoms: No Recent Illness/Hospitalization: Yes PFSH PFSH Home Medications Omeprazole [Prilosec] 40 mg PO DAILY 08/16/16 [History Last Taken Unknown] bupropion HCl 150 mg 24 hr tablet, extended release 150 mg PO DAILY 08/16/16 [History Last Taken Unknown] cyanocobalamin (vitamin B-12) 500 mcg tablet 1,000 mcg PO DAILY@0800 08/16/16 [History Last Taken Unknown] cyclobenzaprine 10 mg tablet 10 mg PO BID PRN PRN Muscle Spasm 08/16/16 [History Last Taken Unknown] duloxetine 60 mg capsule,delayed release 60 mg PO DAILY 08/16/16 [History Last Taken Unknown] fentanyl 50 mcg/hr transdermal patch 25 mcg TRANSDERM. Q72H 08/16/16 [History Last Taken Unknown] furosemide 40 mg tablet 40 mg PO DAILY PRN edema 08/16/16 [History Last Taken Unknown] potassium 99 mg tablet 99 mg PO DAILY 08/16/16 [History Last Taken Unknown] promethazine 25 mg tablet 25 mg PO Q6H PRN PRN Nausea 08/16/16 [History Last Taken Unknown] tramadol 50 mg tablet 50 mg PO Q8H PRN PRN Pain 08/16/16 [History Last Taken Unknown] prazosin 1 mg capsule 1 mg PO DAILY 01/24/19 [History Last Taken Unknown] trazodone 100 mg tablet 300 mg PO QHS 01/24/19 [History Last Taken Unknown] Allergy/AdvReac Type Severity Reaction Status Date / Time No Known Allergies Allergy Verified 02/02/19 08:09 Social History Smoking Status: Never smoker ROS ROS ED Constitutional Constitutional ED: Denies chills, fever(s), subjective, sweats or weight loss Cardiovascular Cardiovascular: Denies chest pain Respiratory/Chest Respiratory/Chest: Denies cough Gastrointestinal Gastrointestinal: Denies nausea or vomiting Psychiatric Psychiatric: Reports anxiety Hematologic/Lymphatic Hematologic/Lymphatic: Reports systems reviewed and no addt'l complaints, except as documented; Denies easy bleeding or easy bruising EXAM Physical Exam Const Vital Signs: 03/05/23 13:11 Temperature 99.3 F H Temperature Source Temporal Pulse Rate 90 Respiratory Rate 18 Blood Pressure 103/62 Blood Pressure Mean 75 Pulse Ox 96 Oxygen Delivery Method Room Air Positive well nourished and well developed General Appearance ED: well developed and NAD; Negative for cyanotic or diaphoretic HEENT Reports moist mucous membranes HEENT Narrative: Head is normocephalic atraumatic. Ears are normal. Eyes PERRL and EOMs intact bilaterally General Eye ED: Negative for pale conjunctiva or scleral icterus Resp normal respiratory effort Cardio regular rate and regular rhythm Extremity Extremity Narrative: Incision site is intact. There is small area of blood noted the most superior portion of the incision site. There is no erythema, warmth, induration or fluctuance. There is minimal blood noted at this time. The broad does not appear infected. There is no inguinal lymphadenopathy. Neuro oriented x3 and CN's II-XII intact bilaterally Sensorium / Orientation: alert Psych Mood & Affect: depressed Skin Skin Narrative: Bleeding from incision site as previously done MDM MDM MDM Narrative Medical decision making narrative: Patient has stiff the site of bleeding could be glued. She was informed this is not a possibility. She then asked if I would place stitches. Again she was told this is not advisable. She was informed that she probably had a hematoma which is breaking down and reason blood is leaking from the small open area. Since there is no evidence infection there is no indication for laboratory tests nor are antibiotics indicated. She was instructed to change dressing frequently and follow-up with her orthopedist as scheduled. Discharge Plan Triage Chief Complaint: Wound Check ED Provider: Deandre Hicks Dx/Rx/DC Orders Clinical Impression: Postoperative hemorrhage from incision Instructions: ED Post Op Wound Check, Bleeding Prescriptions: No Action cyclobenzaprine 10 MG tablet 10 mg PO BID PRN PRN (Reason: Muscle Spasm) furosemide 40 MG tablet 40 mg PO DAILY PRN (Reason: edema) fentanyl 50 MCG patch 25 mcg TRANSDERM. Q72H tramadol 50 MG tablet 50 mg PO Q8H PRN PRN (Reason: Pain) potassium 99 MG tablet 99 mg PO DAILY cyanocobalamin (vitamin B-12) 500 MCG tablet 1,000 mcg PO DAILY@0800 promethazine 25 MG tablet 25 mg PO Q6H PRN PRN (Reason: Nausea) bupropion HCl 150 MG tablet extended release 24 hr 150 mg PO DAILY duloxetine 60 MG capsule 60 mg PO DAILY Omeprazole [Prilosec] 40 MG capsule 40 mg PO DAILY prazosin 1 MG capsule 1 mg PO DAILY trazodone 100 MG tablet 300 mg PO QHS Primary Care Provider: Jesse Salinas Referrals: Jesse Salinas DO [Primary Care Provider] - As Needed Activity Restrictions/Additional Instructions: If you have continued bleeding after 3 to 5 days contact your orthopedic surgeon or if there is any concern for infection. Disposition Disposition: Home, Self Care
[2023-03-05 13:55] VITALS: BP 128/67; PULSE 59; RESP 16; O2SAT 98
== END 2023-03-05 13:57 | disposition home or self-care (01) ==
LOC: ED 13:38
PROVIDERS: Emergency Provider Emergency Medicine; PCP Student in an Organized Health Care Education/Training Program; Visit Provider Emergency Medicine
DX: L76.21 Postprocedural hemorrhage of skin and subcutaneous tissue following a dermatologic procedure (principal)
CPT/HCPCS: 99282

== ENCOUNTER 2023-04-06 13:45 | Emergency (ER) | payer MEDICARE, MEDICAID, SELFPAY ==
[2023-04-06 13:47] VITALS: BP 106/67; PULSE 72; RESP 18; TEMP 36.8; O2SAT 100; BMI 34.4
--- NOTE | 2023-04-06 13:54 | EDS_ITS ---
HPI History of Present Illness Chief Complaint: Lower Extremity Injury Informant: patient Narrative Narrative: Patient presents with drainage from her right hip that just started shortly before arrival. Patient had a history of a hip replacement. About 2 months ago she had a dislocation. She had surgery done by Dr. Lewis Pop at [facility]. She had a new polyethylene component placed. About a month later she got an infection. Repeat surgery was done. And she is on IV vancomycin through a PICC line. She has an appointment today and approximately 30 minutes with her orthopedic surgeon. She called EMS and requested that they take her to [place]. She states that they refused and brought her here. She is not happy about that. She states that the fluid squirted out from her wound. It now seems to be stopping. Her pain is not changed. She has not had nausea vomiting. She has not had any fevers at all. PFSH PFSH Home Medications Omeprazole [Prilosec] 40 mg PO DAILY 08/16/16 [History Last Taken Unknown] bupropion HCl 150 mg 24 hr tablet, extended release 150 mg PO DAILY 08/16/16 [History Last Taken Unknown] cyanocobalamin (vitamin B-12) 500 mcg tablet 1,000 mcg PO DAILY@0800 08/16/16 [History Last Taken Unknown] cyclobenzaprine 10 mg tablet 10 mg PO BID PRN PRN Muscle Spasm 08/16/16 [History Last Taken Unknown] duloxetine 60 mg capsule,delayed release 60 mg PO DAILY 08/16/16 [History Last Taken Unknown] fentanyl 50 mcg/hr transdermal patch 25 mcg TRANSDERM. Q72H 08/16/16 [History Last Taken Unknown] furosemide 40 mg tablet 40 mg PO DAILY PRN edema 08/16/16 [History Last Taken Unknown] potassium 99 mg tablet 99 mg PO DAILY 08/16/16 [History Last Taken Unknown] promethazine 25 mg tablet 25 mg PO Q6H PRN PRN Nausea 08/16/16 [History Last Taken Unknown] tramadol 50 mg tablet 50 mg PO Q8H PRN PRN Pain 08/16/16 [History Last Taken Unknown] prazosin 1 mg capsule 1 mg PO DAILY 01/24/19 [History Last Taken Unknown] trazodone 100 mg tablet 300 mg PO QHS 01/24/19 [History Last Taken Unknown] Allergy/AdvReac Type Severity Reaction Status Date / Time No Known Allergies Allergy Verified 02/02/19 08:09 Surgical History Status post hip surgery Social History Smoking Status: Never smoker ROS ROS ED Constitutional Constitutional ED: Denies chills or fever(s) ENT ENT ED: Denies rhinorrhea Cardiovascular Cardiovascular: Denies chest pain or palpitations Respiratory/Chest Respiratory/Chest: Denies cough or dyspnea Gastrointestinal Gastrointestinal: Denies nausea or vomiting Musculoskeletal Musculoskeletal: Reports other Details: See history of present illness. Integumentary Reports other Details: Drainage from wound see history of present illness. Neurologic Neurologic: Denies paresthesias or weakness Hematologic/Lymphatic Hematologic/Lymphatic: Denies easy bleeding, easy bruising or lymphadenopathy EXAM Physical Exam Narrative Exam Narrative: CONSTITUTIONAL: Patient is nontoxic in appearance. The patient looks comfortable. Work of breathing looks normal. HEENT: No notable trauma. Mucous membranes moist. EYES: No conjunctival injection. No icterus. NECK:No JVD. No stridor. CARDIOVASCULAR: Regular rate. Regular rhythm. No notable murmur. No JVD. RESPIRATORY: No respiratory distress. Breathing is unlabored. No wheezes. No rhonchi. No rales. No pain with a deep breath. No chest wall tenderness. GASTROINTESTINAL: Not distended. Bowel sounds are normal. No tenderness. No guarding. No rebound. No palpable mass. No bruit is heard. GENITOURINARY: No tenderness over the bladder. No CVA tenderness. MUSCULOSKELETAL: Patient has 2 closely spaced incisions on the right hip. There is some serous drainage from the top portion of the lower incision. This has just minimal pink tinge. It is not purulent. It is coming out as pure liquid. I think she likely had a seroma that drained. There is minimal wound erythema but is overall healing well. NEUROLOGICAL: Patient is alert and appropriate. No focal deficit noted. SKIN: No noted rashes. No diaphoresis. See hip exam as above. PSYCHIATRIC: Patient is calm. Mood is appropriate. Const Vital Signs: 04/06/23 13:47 Temperature 98.2 F Temperature Source Temporal Pulse Rate 72 Respiratory Rate 18 Blood Pressure 106/67 Blood Pressure Mean 80 Pulse Ox 100 Oxygen Delivery Method Room Air MDM MDM MDM Narrative Medical decision making narrative: Patient CBC shows minimally low white count and hemoglobin. Platelets are normal. Electrolytes show no marked abnormalities. Glucose is normal at 89. ESR is normal at 12. C-reactive protein is slightly up at 12.4. My independent interpretation of 5 view x-ray of her right hip shows no acute process. Final reading is similar but I think they note the findings consistent with ulceration or laceration which is likely her suture line. I discussed the case with her orthopedic surgeon, Dr. Pop. He knows the patient quite well. We went over the labs and x-rays and clinical findings. He will follow her up in the office. She should stay on her vancomycin. My suspicion is that this was drainage of a seroma. It is stopped draining or minimally draining now. But when it started it squirted out. Lab Data Attestation: I reviewed the patient's lab results. Labs: Laboratory Results - last 24 hr 04/06/23 14:09 WBC 3.6 L RBC 3.32 L Hgb 9.2 L Hct 30.0 L MCV 90.4 MCH 27.7 MCHC 30.7 L RDW Std Deviation 42.4 RDW Coeff of Shane 12.7 Plt Count 280 MPV 9.3 Immature Gran % (Auto) 0.300 Neut % (Auto) 44.6 L Lymph % (Auto) 34.4 Power % (Auto) 11.2 H Eos % (Auto) 8.7 H Baso % (Auto) 0.8 Absolute Neuts (auto) 1.6 L Absolute Lymphs (auto) 1.23 Nucleated RBC % 0 ESR 12 Sodium 143 Potassium 3.4 L Chloride 109 H Carbon Dioxide 31.0 Anion Gap 3 L BUN 7 Creatinine 0.47 L Estim Creat Clear Calc 114.04 Est GFR (MDRD) Af Amer 174 Est GFR (MDRD) Non-Af 144 BUN/Creatinine Ratio 14.8 Glucose 89 Calcium 7.9 L C-React Prot Ext Range 12.40 H Radiography Diagnostic Testing: Clinical Impression(s) from Imaging Studies Hip/Pelvis X-Ray 04/06/23 14:15 IMPRESSION: Status post right total hip replacement. Soft tissue swelling involving the proximal right thigh with areas of findings suggestive of either ulcerations and/or laceration. Electronically Signed: Wayne Chapa MD at 14:36 EDT , Discharge Plan Triage Chief Complaint: Lower Extremity Injury ED Provider: Lewis Solis Dx/Rx/DC Orders Clinical Impression: Seroma after procedure, Drainage from surgical wound Instructions: ED Post Op Wound Check, General Prescriptions: No Action cyclobenzaprine 10 MG tablet 10 mg PO BID PRN PRN (Reason: Muscle Spasm) furosemide 40 MG tablet 40 mg PO DAILY PRN (Reason: edema) fentanyl 50 MCG patch 25 mcg TRANSDERM. Q72H tramadol 50 MG tablet 50 mg PO Q8H PRN PRN (Reason: Pain) potassium 99 MG tablet 99 mg PO DAILY cyanocobalamin (vitamin B-12) 500 MCG tablet 1,000 mcg PO DAILY@0800 promethazine 25 MG tablet 25 mg PO Q6H PRN PRN (Reason: Nausea) bupropion HCl 150 MG tablet extended release 24 hr 150 mg PO DAILY duloxetine 60 MG capsule 60 mg PO DAILY Omeprazole [Prilosec] 40 MG capsule 40 mg PO DAILY prazosin 1 MG capsule 1 mg PO DAILY trazodone 100 MG tablet 300 mg PO QHS Primary Care Provider: Jesse Salinas Referrals: Jesse Salinas DO [Primary Care Provider] - Activity Restrictions/Additional Instructions: Follow-up with your orthopedic surgeon this coming week. Disposition Disposition: Home, Self Care
--- NOTE | 2023-04-06 14:15 | RAD_ITS ---
STUDY: X-RAY - PELVIS AND RIGHT HIP REASON FOR EXAM: Female, 57 years old. S/P surgery, drainage TECHNIQUE: 3 views of the pelvis and hip. COMPARISON: None. FINDINGS: There is a non-specific bowel gas pattern. Soft tissue swelling overlying the lateral aspect of the proximal thigh with findings suggestive of a possible ulcerations or lacerations. There is narrowing with cortical sclerosis and osteophyte formation of the sacroiliac joint consistent with degenerative osteoarthritic changes. Normal bilateral superior and inferior pubic rami. There is narrowing with sclerosis of the pubic symphysis. Normal bilateral ischial tuberosities. The patient is status post right total hip replacement. There is good alignment. There is no evidence of fracture or dislocation. RAD/HIP, UNI W/ Pelvis 2-3 Views IMPRESSION: Status post right total hip replacement. Soft tissue swelling involving the proximal right thigh with areas of findings suggestive of either ulcerations and/or laceration. Electronically Signed: Wayne Chapa MD at 14:36 EDT ,
[2023-04-06 14:25] LABS: Erythrocyte Sedimentation Rate 12 mm/hr (0-30)
[2023-04-06 14:27] LABS: Absolute Lymphocyte Count 1.23 X10^3/uL (0.83-4.51); Absolute Neutrophil Count 1.6 X10^3/uL (2.0-7.7); Basophil# 0.03 X10^3/uL; Basophil% 0.8 % (0-1); Eosinophil# 0.31 X10^3/uL; Eosinophils% 8.7 % (0-5); Hemoglobin 9.2 g/dL (12.0-15.0); Lymphocyte # 1.23 X10^3/ul (0.83-4.51); Lymphocyte % 34.4 % (19-41); Mean Corp Hgb Conc 30.7 g/dL (32-36); Mean Corpuscular Hgb 27.7 pg (27.0-32.0); Mean Corpuscular Volume 90.4 fL (81-99); Mean Platelet Vol. 9.3 fl (6.2-12.0); Monocyte% 11.2 % (0-10); NRBC Flagged by Analyzer 0 % (0-5); Neutrophil % 44.6 % (47-70); Platelet Count 280 K/mm3 (150-450); RBC Distribution Width CV 12.7 % (11.6-14.6); RBC Distribution Width SD 42.4 fl (35.1-43.9); Red Blood Count 3.32 M/mm3 (4.2-5.4); White Blood Count 3.6 K/mm3 (4.4-11.0)
[2023-04-06 14:30] LABS: Anion Gap 3 (5-15); BUN 7 mg/dL (7-18); BUN/Creat Ratio 14.8 RATIO (10-20); Calcium,Total 7.9 mg/dL (8.5-10.1); Chloride 109 mmol/L (98-107); Creatinine, Serum 0.47 mg/dL (0.55-1.02); EST Glomerular Filtration Rate 144 mL/min (>60); Est Glom Filt Rate - Afr Amer 174 mL/min (>60); Estimated Creatinine Clearance 114.04 ml/min; Glucose 89 mg/dL (74-106); Potassium 3.4 mmol/L (3.5-5.1); Sodium Level 143 mmol/L (136-145)
[2023-04-06 16:15] VITALS: BP 109/62; PULSE 67; RESP 16; TEMP 36.8; O2SAT 96
== END 2023-04-06 16:35 | disposition home or self-care (01) ==
PROVIDERS: Emergency Provider Emergency Medicine; PCP Student in an Organized Health Care Education/Training Program; Visit Provider Emergency Medicine
DX: L76.32 Postprocedural hematoma of skin and subcutaneous tissue following other procedure (principal)
CPT/HCPCS: 36592; 73502; 80048; 85025; 85652; 86140; 87070; 87077; 87186; 87205; 99284; A4216

== ENCOUNTER → 2024-06-07 | Outpatient (CLI) | payer MEDICARE, MEDICAID, SELFPAY ==
[2024-06-07 18:28] LABS: Creatinine, Serum 0.84 mg/dL (0.55-1.02); EST Glomerular Filtration Rate 74 mL/min (>60); Est Glom Filt Rate - Afr Amer 89 mL/min (>60)
== END | disposition home or self-care (01) ==
PROVIDERS: PCP Student in an Organized Health Care Education/Training Program; Referring Provider Internal Medicine; Visit Provider Internal Medicine
DX: Z96.641 Presence of right artificial hip joint (principal)
CPT/HCPCS: 82565

== ENCOUNTER → 2024-06-08 | Outpatient (CLI) | payer MEDICARE, MEDICAID, SELFPAY ==
[2024-06-08 14:47] LABS: Creatinine, Serum 0.88 mg/dL (0.55-1.02); EST Glomerular Filtration Rate 70 mL/min (>60); Est Glom Filt Rate - Afr Amer 85 mL/min (>60)
== END | disposition home or self-care (01) ==
PROVIDERS: Referring Provider Internal Medicine; Visit Provider Internal Medicine
DX: T84.89XD Other specified complication of internal orthopedic prosthetic devices, implants and grafts, subsequent encounter (principal); Z96.641 Presence of right artificial hip joint; Y79.2 Prosthetic and other implants, materials and accessory orthopedic devices associated with adverse incidents
CPT/HCPCS: 82565

== ENCOUNTER 2024-10-11 13:22 | Emergency (ER) | payer MEDICARE, MEDICAID, SELFPAY ==
[2024-10-11 13:24] VITALS: BP 143/87; PULSE 88; RESP 18; TEMP 37; O2SAT 99
[2024-10-11 13:31] VITALS: BMI 34.2
[2024-10-11 13:37] VITALS: BP 143/87; PULSE 88; RESP 18; TEMP 37; O2SAT 99
[2024-10-11 16:03] LABS: Absolute Lymphocyte Count 2.17 X10^3/uL (0.83-4.51); Basophil# 0.02 X10^3/uL; Basophil% 0.4 % (0-1); Eosinophils% 2.1 % (0-5); Hematocrit 34.7 % (37-47); Hemoglobin 10.8 g/dL (12.0-15.0); Lymphocyte # 2.17 X10^3/ul (0.83-4.51); Lymphocyte % 46.5 % (19-41); Mean Corp Hgb Conc 31.1 g/dL (32-36); Mean Corpuscular Hgb 25.2 pg (27.0-32.0); Mean Corpuscular Volume 80.9 fL (81-99); Mean Platelet Vol. 9.4 fl (6.2-12.0); Monocyte# 0.33 X10^3/uL; Monocyte% 7.1 % (0-10); NRBC Flagged by Analyzer 0 % (0-5); Neutrophil # 2.04 X10^3/uL (2.7-7.7); Neutrophil % 43.7 % (47-70); Platelet Count 324 K/mm3 (150-450); RBC Distribution Width CV 14.8 % (11.6-14.6); RBC Distribution Width SD 43.4 fl (35.1-43.9); Red Blood Count 4.29 M/mm3 (4.2-5.4); White Blood Count 4.7 K/mm3 (4.4-11.0)
[2024-10-11 16:20] LABS: Anion Gap 3 (5-15); BUN 15 mg/dL (7-18); BUN/Creat Ratio 24.7 RATIO (10-20); Calcium,Total 8.8 mg/dL (8.5-10.1); Chloride 107 mmol/L (98-107); Creatinine, Serum 0.61 mg/dL (0.55-1.02); EST Glomerular Filtration Rate 107 mL/min (>60); Est Glom Filt Rate - Afr Amer 130 mL/min (>60); Glucose 100 mg/dL (74-106); Potassium 3.5 mmol/L (3.5-5.1); Sodium Level 139 mmol/L (136-145)
[2024-10-11 17:00] VITALS: BP 123/76; PULSE 91; RESP 16; TEMP 37; O2SAT 99
--- NOTE | 2024-10-11 17:13 | ED.RN ---
PT WAS BROUGHT TO ROOM 18 FOR THIS NURSE TO CARE FOR AT 1714. ALL SEPSIS VS WERE NOT COMPLETE WHILE PT WAS IN THE WAITING AREA.
--- NOTE | 2024-10-11 17:14 | ED.VIS.LOWEX ---
HPI History of Present Illness HPI Narrative: Patient presents with a wound to her right thigh that has been getting worse over the last 2 to 3 days. Patient states that today she started having some purulent drainage from the wound. Patient states she was at the wound care at [facility] yesterday. Patient states she had a fever of 101.3 at home. Patient describes her pain as dull and aching. Patient states nothing makes it better and nothing makes it worse. Patient states she feels like she has some weakness in her right leg but denies any paresthesias. Chief Complaint: Wound Informant: patient Onset/Context/Timing Onset: Days Context: Gradual Onset Timing: Continuous Quality of Pain: Dull and Aching Location: Lateral right thigh Worsened by: Nothing Relieved by: Nothing Associated Symptoms Associated Symptoms: Negative for Parasthesia [facility] Medical History (Updated 10/11/24 @ 20:[address] Jovi Teixeira, DO) Heart disease Home Medications ?Medication ?Instructions ?Recorded ?Last Taken ?Type Omeprazole [Prilosec] 40 mg PO DAILY 08/16/16 Unknown History bupropion HCl 150 mg 24 hr tablet, 150 mg PO DAILY 08/16/16 Unknown History extended release cyanocobalamin (vitamin B-12) 500 1,000 mcg PO DAILY@0800 08/16/16 Unknown History mcg tablet cyclobenzaprine 10 mg tablet 10 mg PO BID PRN PRN Muscle Spasm 08/16/16 Unknown History duloxetine 60 mg capsule,delayed 60 mg PO DAILY 08/16/16 Unknown History release fentanyl 50 mcg/hr transdermal 25 mcg TRANSDERM. Q72H 08/16/16 Unknown History patch furosemide 40 mg tablet 40 mg PO DAILY PRN edema 08/16/16 Unknown History potassium 99 mg tablet 99 mg PO DAILY 08/16/16 Unknown History promethazine 25 mg tablet 25 mg PO Q6H PRN PRN Nausea 08/16/16 Unknown History tramadol 50 mg tablet 50 mg PO Q8H PRN PRN Pain 08/16/16 Unknown History prazosin 1 mg capsule 1 mg PO DAILY 01/24/19 Unknown History trazodone 100 mg tablet 300 mg PO QHS 01/24/19 Unknown History cephalexin 500 mg capsule 500 mg PO Q6 #40 CAPSULES 10/11/24 Unknown Rx Allergy/AdvReac Type Severity Reaction Status Date / Time NSAIDS (Non-Steroidal Allergy Bleeding Verified 10/11/24 17:24 Anti-Inflamma Surgical History Status post hip surgery Social History Smoking Status: Never smoker ROS ROS ED Constitutional Constitutional ED: Reports fever(s); Denies chills Eyes Eyes: Denies blurry vision or change in vision ENT ENT ED: Denies rhinorrhea or sore throat Cardiovascular Cardiovascular: Denies chest pain or palpitations Respiratory/Chest Respiratory/Chest: Denies cough or dyspnea Gastrointestinal Gastrointestinal: Denies nausea or vomiting Genitourinary Genitourinary ED: Denies dysuria or hematuria Musculoskeletal Musculoskeletal: Denies back pain or neck pain Integumentary Denies abscess or rash Neurologic Neurologic: Reports headache(s); Denies weakness Allergic/Immunologic Allergic/Immunologic ED: Denies mouth swelling or urticaria EXAM Physical Exam Const Vital Signs: 10/11/24 13:24 10/11/24 13:37 10/11/24 17:00 Temperature 98.6 F 98.6 F 98.6 F Temperature Source Oral Oral Oral Pulse Rate 88 88 91 Respiratory Rate 18 18 16 Blood Pressure 143/87 H 143/87 H 123/76 H Blood Pressure Mean 105 105 91 Pulse Ox 99 99 99 Oxygen Delivery Method Room Air Room Air Room Air 10/11/24 18:00 10/11/24 19:00 Temperature 97.7 F L 98.3 F Temperature Source Oral Oral Pulse Rate 79 83 Respiratory Rate 16 18 Blood Pressure 125/74 H 116/68 Blood Pressure Mean 91 84 Pulse Ox 99 98 Oxygen Delivery Method Room Air Positive well nourished and well developed General Appearance ED: well developed and NAD HEENT Reports moist mucous membranes Neck full ROM Extremity Extremity Narrative: There is an open wound over the lateral aspect of the right proximal thigh along the distal hip incision. There is some purulent drainage noted. There is no surrounding erythema or warmth. There is no induration. Neuro oriented x3, CN's II-XII intact bilaterally, moves all extremities and no sensory deficits noted Sensorium / Orientation: alert Motor Exam: strength 5/5 throughout Psych mental status grossly normal MDM MDM MDM Narrative Medical decision making narrative: Differential diagnosis includes infection, sepsis, electrolyte abnormality, and osteomyelitis. X-rays of the right femur will be obtained to assess for osteomyelitis. CBC will be obtained to assess for leukocytosis and anemia. Basic metabolic profile will be obtained to assess for electrolyte abnormality and renal function. Serum lactate will be obtained to assess for sepsis. Wound culture will be obtained to assess for bacterial infection. Sed rate and CRP will be obtained to assess for inflammatory markers. Lab Data Attestation: I reviewed the patient's lab results. Lab results narrative: CBC was reviewed. There is a slight anemia with a hemoglobin of 10.8 and hematocrit 34.7. Basic metabolic profile was reviewed and was within normal limits. Sed rate was reviewed and was normal at 25. CRP was reviewed and was slightly elevated at 4.49. Labs: Laboratory Results - last 24 hr 10/11/24 10/11/24 15:45 18:17 WBC 4.7 RBC 4.29 Hgb 10.8 L Hct 34.7 L MCV 80.9 L MCH 25.2 L MCHC 31.1 L RDW Std Deviation 43.4 RDW Coeff of Shane 14.8 H Plt Count 324 MPV 9.4 Immature Gran % (Auto) 0.200 Neut % (Auto) 43.7 L Lymph % (Auto) 46.5 H [place] % (Auto) 7.1 Eos % (Auto) 2.1 Baso % (Auto) 0.4 Absolute Neuts (auto) 2.0 Absolute Lymphs (auto) 2.17 Nucleated RBC % 0 ESR 25 Sodium 139 Potassium 3.5 Chloride 107 Carbon Dioxide 29.0 Anion Gap 3 L BUN 15 Creatinine 0.61 Est GFR (MDRD) Af Amer 130 Est GFR (MDRD) Non-Af 107 BUN/Creatinine Ratio 24.7 H Glucose 100 Lactic Acid 1.1 Calcium 8.8 C-React Prot Ext Range 4.49 H Radiography Diagnostic Testing: Clinical Impression(s) from Imaging Studies Femur X-Ray 10/11/24 17:50 IMPRESSION: Lateral displacement of the proximal femur. No fracture. Electronically Signed: Dinah Wagner MD at 18:55 EST Reading Location ID and State: [id number] / Tel , Service support , X-rays of the right femur were obtained. There are 4 views. On my independent interpretation, there is no evidence of osteomyelitis. There is no acute fracture. Radiologist also interpreted the x-rays and agrees. Treatment and Re-Evaluation Narrative: Patient was ordered a dose of Ancef here. Patient was advised of her findings. Patient was given a prescription for Keflex. Patient was instructed to follow-up with her wound care physician in 5 to 7 days. Patient was instructed to return if worse in any way. Patient understood and was agreeable with the plan. All questions were answered. Discharge Plan Triage Chief Complaint: Wound ED Provider: Jovi Teixeira Dx/Rx/DC Orders Clinical Impression: Open wound of right thigh, Osteoarthritis Instructions: ED Wound Care Prescriptions: New cephalexin 500 mg capsule 500 mg PO Q6 Qty: 40 0RF No Action cyclobenzaprine 10 MG tablet 10 mg PO BID PRN PRN (Reason: Muscle Spasm) furosemide 40 MG tablet 40 mg PO DAILY PRN (Reason: edema) fentanyl 50 MCG patch 25 mcg TRANSDERM. Q72H tramadol 50 MG tablet 50 mg PO Q8H PRN PRN (Reason: Pain) potassium 99 MG tablet 99 mg PO DAILY cyanocobalamin (vitamin B-12) 500 MCG tablet 1,000 mcg PO DAILY@0800 promethazine 25 MG tablet 25 mg PO Q6H PRN PRN (Reason: Nausea) bupropion HCl 150 MG tablet extended release 24 hr 150 mg PO DAILY duloxetine 60 MG capsule 60 mg PO DAILY Omeprazole [Prilosec] 40 MG capsule 40 mg PO DAILY prazosin 1 MG capsule 1 mg PO DAILY trazodone 100 MG tablet 300 mg PO QHS Primary Care Provider: Jesse Salinas Referrals: Jesse Salinas, [Primary Care Provider] - 5-7 Days Print Language: Croatian Disposition Disposition: Home, Self Care
--- NOTE | 2024-10-11 17:50 | RAD_ITS ---
INDICATION: Injury/Pain EXAMINATION/TECHNIQUE: X-RAY - RIGHT XR Femur Min 2 Views 4 VIEWS COMPARISON: 04/06/2023. FINDINGS: Prior right hip replacement has been removed. Proximal femur is laterally displaced relative to the acetabulum. Heterotopic calcification about the proximal femur. Marked spurring of the lateral acetabulum. No acute fracture or dislocation. Knee replacement in anatomic alignment. No evidence of loosening. Old healed fracture deformities of the fibular head and proximal tibial shaft. No radiopaque foreign body or soft tissue gas. RAD/Femur Min 2 Views IMPRESSION: Lateral displacement of the proximal femur. No fracture. Electronically Signed: Dinah Wagner MD at 18:55 EST Reading Location ID and State: [id number] / Tel , Service support ,
[2024-10-11 18:00] VITALS: BP 125/74; PULSE 79; RESP 16; TEMP 36.5; O2SAT 99
[2024-10-11 18:58] LABS: Lactic Acid 1.1 mmol/L (0.4-1.9)
[2024-10-11 19:00] VITALS: BP 116/68; PULSE 83; RESP 18; TEMP 36.8; O2SAT 98
[2024-10-11 20:00] LABS: CRP 4.49 mg/L (0.0-3.0)
[2024-10-11 20:05] LABS: Erythrocyte Sedimentation Rate 25 mm/hr (0-30)
[2024-10-11 21:00] VITALS: PULSE 84; RESP 18; O2SAT 97
[2024-10-11] MEDS: Cefazolin 1 GM/50 ML BAG IV (21:05)
== END 2024-10-11 21:24 | disposition home or self-care (01) ==
PROVIDERS: Emergency Provider Emergency Medicine; PCP Student in an Organized Health Care Education/Training Program; Visit Provider Emergency Medicine
DX: S71.101A Unspecified open wound, right thigh, initial encounter (principal); X58.XXXA Exposure to other specified factors, initial encounter; R29.898 Other symptoms and signs involving the musculoskeletal system; D64.9 Anemia, unspecified; M19.90 Unspecified osteoarthritis, unspecified site
CPT/HCPCS: 73552; 80048; 83605; 85025; 85652; 86140; 87070; 87077; 87186; 87205; 96365; 99283; A4216